=== PATIENT | female | born 2005 | race African-American/Black ===

== ENCOUNTER 2024-01-19 15:10 | Emergency (ER) | payer SELFPAY ==
[~2024-01-19] VITALS: Ht 152.4 cm; Wt 45.4 kg
[2024-01-19 15:38] VITALS: TEMP 98.2
[2024-01-19] MEDS ORDERED: DOCUSATE SODIUM LIQD 100 MG/10 ML UDC ONE (16:02)
[2024-01-19] MEDS: DOCUSATE SODIUM LIQD 100 MG/10 ML UDC PO ONE (16:30)
[2024-01-19 17:16] VITALS: PULSE 70; RESP 18; O2SAT 96
== END 2024-01-19 17:18 | disposition home or self-care (01) ==
LOC: FSED 15:20
DX: H92.02 Otalgia, left ear (principal); H61.23 Impacted cerumen, bilateral
CPT/HCPCS: 99282